=== PATIENT | male | born 1945 ===

== ENCOUNTER 2023-02-27 14:39 | Emergency (ER) | payer SELFPAY ==
[~2023-02-27 14:39] MED LIST: AMIODARONE 50 MG/ML 3 ML VIAL IV ONE; DEXTROSE 5% IN WATER 50 ML BAG ONE; DEXTROSE 50% SYRINGE 50 ML IVP ONE; EPINEPHrine 10 ML SYRINGE (0.1 MG/ML) ONE
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
== END 2023-02-27 19:40 | disposition expired ==
LOC: EC 14:39
DX: I46.9 Cardiac arrest, cause unspecified (principal); V89.2XXA Person injured in unspecified motor-vehicle accident, traffic, initial encounter
CPT/HCPCS: 92950; 99285; J0282; J0171